=== PATIENT | male | born 1965 ===

== ENCOUNTER 2020-03-13 10:27 | Day surgery (SDC) | payer OTHER ==
[2020-03-13] MEDS ORDERED: Betamethasone Acetate/Betamethasone Sod Phosphate 30 MG/5 ML MDV EPIDUR ONE (12:30)
[2020-03-13] MEDS ORDERED: Iopamidol 200-M 10 ML vial ITHECAL ONE (12:30)
[2020-03-13] MEDS ORDERED: Ropivacaine 0.5% 5 MG/ML 30 ML SDV INJECT ONE (12:30)
[2020-03-13] MEDS ORDERED: Lidocaine 2% 5 ML SDV INJECT ONE (12:30)
--- NOTE | 2020-03-13 21:14 | OR ---
SURGEON: Maryjane Bonilla D.O. DATE OF PROCEDURE: 03/13/2020 PRIMARY SURGEON: Maryjane Bonilla DO ASSISTANTS: OR staff present: 1. Xavier Duncan RT. 2. Federico Arreguin RN. 3. Jose David Peña RN. WOUND CLASS: I. PREOPERATIVE DIAGNOSES: 1. Lumbar degenerative disk disease. 2. Lumbar facet arthropathy, L4-5 and L5-S1 3. L5-S1 right transitional vertebrae. 3. Chronic low back pain. POSTOPERATIVE DIAGNOSES: 1. Lumbar degenerative disk disease. 2. Lumbar facet arthropathy L4-5 and L5-S1 3. L5-S1 right transitional vertebrae. 3. Chronic low back pain. PROCEDURES PERFORMED: 1. Right L4-5 facet joint injection. 2. Right L5-S1 facet joint injection. 3. Left L4-5 facet joint injection. 4. Left L5-S1 facet joint injection. 5. Fluoroscopic guidance for needle placement. 6. Local with oral Valium for sedation. SCREENING QUESTIONS: The patient answered "No" to all the following questions: 1. Are you allergic to iodine, Betadine or latex? 2. Do you have a bleeding disorder? 3. Are you on anti-inflammatories or blood thinners? 4. Do you have any current local or systemic infections? DESCRIPTION OF PROCEDURE: The patient had the procedure thoroughly explained including risks, benefits and alternatives. Consent was signed in my clinic indicating understanding and willingness to proceed. The patient presented to [facility] and was escorted to the dressing room to disrobe and change into a hospital gown. Preoperative history and screening were performed by my nurse. Vital signs were taken and stable. The patient reported that Valium 10 milligrams was taken prior to the procedure. The patient was brought back to the procedure room and placed in the prone position on the procedure room table. A pillow was placed under the abdomen in order to flatten the lumbar lordosis. The back was prepped with ChloraPrep and sterilely draped. All personnel in the procedure room were dressed in appropriate attire including surgical scrubs, head and shoe covers. This was to ensure sterility while in the treatment room. During the time fluoroscopy was in use all personnel in the operating room wore lead rios with thyroid collars. Sterile technique was used during the procedure. Then the fluoroscope was positioned to provide a right oblique view for the right L4-5 facet joint injection. This was begun by anesthetizing the skin and soft tissues. The fluoroscope was positioned and a sterile 22-gauge 3.5 inch needle was placed at the junction of the"ear of the evangelina dog" for the facet joint. Precise needle placement was confirmed by fluoroscopy and with 0.2 cubic centimeters of IsoVue-200 contrast dye was injected through microbore tubing under live fluoroscopy and showed no intravascular flow pattern and adequate flow over the target facet joint. After negative aspiration, 1.0 cubic centimeters of celestone 0.5% Ropivacaine was injected without complications. This was repeated on the left for the left L4-5 facet injection as above. The fluoroscope was then positioned to provide a right oblique view of the right L5-S1 facet joint for the injection. This was begun by anesthetizing the skin over the facet joint and soft tissues using fluoroscopic guidance. Then a sterile 22-gauge 3.5 inch spinal needle was positioned at the junction of the " ear of the evangelina dog". Precise needle placement was confirmed by fluoroscopy in AP and oblique views and with 0.2 cubic centimeters of IsoVue-200 contrast dye that was injected through microbore tubing under live fluoroscopy and showed no intravascular flow pattern and adequate flow over the target facet joint. After negative aspiration, 1.0 cubic centimeters of celestone and 0.5% Ropivacaine was injected. No complications were noted. The procedure was repeated as above for the left L5-S1 facet injection. The procedure was well tolerated and vital signs were stable during and after the procedure. The staff escorted the patient to the recovery area. The patient was given both oral and written discharge and followup instructions. The patient will follow up with a pain diary which will be evaluated over this evening doing things that would normally cause pain. We will evaluate the efficacy of the diagnostic lumbar medial branch blocks as the patient will follow up in the clinic the next day. The patient was given both oral and written discharge and followup instructions. The patient voiced understanding including understanding of those signs and symptoms that would require emergency care and knows how to contact the office if there are any questions or concerns in the meantime. PREOPERATIVE PAIN: 4 to 9 out of 10. POSTOPERATIVE PAIN: 2/10. FOLLOWUP: In the Pain Clinic in 1 month. HOGLCHR / MODL /[id number] ANNE
== END 2020-03-13 12:55 | disposition home or self-care (01) ==
LOC: MW.SDS 10:27
PROVIDERS: ATTEND Anesthesiology
DX: G89.29 Other chronic pain (principal); M51.16 Intervertebral disc disorders with radiculopathy, lumbar region; M47.26 Other spondylosis with radiculopathy, lumbar region; M79.18 Myalgia, other site; M48.061 Spinal stenosis, lumbar region without neurogenic claudication; Z79.899 Other long term (current) drug therapy

== ENCOUNTER → 2020-08-09 | Day surgery (SDC) | payer OTHER ==
[~2020-08-09] MED LIST: Betamethasone Acetate/Betamethasone Sod Phosphate 30 MG/5 ML MDV EPIDUR ONE; Iopamidol 200-M 10 ML vial ITHECAL ONE; Lidocaine 2% 5 ML SDV INJECT ONE; Ropivacaine 0.5% 5 MG/ML 30 ML SDV INJECT ONE
== END ==
LOC: MW.SDS 11:04
PROVIDERS: ATTEND Anesthesiology
DX: M47.26 Other spondylosis with radiculopathy, lumbar region (principal); Z53.09 Procedure and treatment not carried out because of other contraindication
CPT/HCPCS: J0702; J2795; Q9966